=== PATIENT | male | born 1960 | race Caucasian/White ===

== ENCOUNTER 2021-08-24 15:10 | Outpatient (CLI) | payer BC, SELFPAY ==
--- NOTE | 2021-08-24 15:30 | ECG_ITS ---
Measurements Intervals [place] Rate: 52 P: 13 WI: 128 QRS: 16 QRSD: 118 T: 46 QT: 397 QTc: 372 Interpretive Statements SINUS BRADYCARDIA INCOMPLETE LEFT BUNDLE BRANCH BLOCK DELAYED PRECORDIAL R/S TRANSITION BASELINE ARTIFACT- I, II, III, AVR, AVL, AVF ABNORMAL ECG Electronically Signed On 08-24-2021 16:02:15 CDT by Jak Zelaya D.O.
== END 2021-08-24 15:11 | disposition home or self-care (01) ==
LOC: ANHSURGERY 15:12
PROVIDERS: PCP Family Medicine; Visit Provider Otolaryngology
DX: I10 Essential (primary) hypertension (principal); Z01.818 Encounter for other preprocedural examination; I44.7 Left bundle-branch block, unspecified
CPT/HCPCS: 93005

== ENCOUNTER 2021-08-26 00:26 | Day surgery (SDC) | payer BC, SELFPAY ==
[2021-08-19 14:55] VITALS: BMI 35.5
--- NOTE | 2021-08-24 18:52 | PM.IMHP ---
H&P: HPI History of Present Illness Date/Time: 08/24/21 18:52 Chief Complaint: neck mass, thyroglossal duct cyst Narrative: Patient presents for planned surgical procedures, no change in history, no change in symptoms. Review of Systems Constitutional: Constitutional: Denies fatigue, Denies fever(s) and Denies lethargy Eyes: Eyes: Denies blurry vision and Denies change in vision ENT: Reports as per HPI Cardiovascular: Cardiovascular: Denies chest pain Respiratory: Respiratory: Denies cough Endocrine: Endocrine: Denies fatigue Hematologic/Lymphatic: Hematologic/Lymphatic: Denies easy bleeding, Denies easy bruising and Denies lymphadenopathy Allergic/Immunologic: Allergic/Immunologic: Denies seasonal rhinorrhea [facility] Family History Family History Father Cancer Hypertension Heart disease Mother Diabetes mellitus Hypertension Heart disease Cerebrovascular accident Sibling Diabetes mellitus Grandparent Cancer Diabetes mellitus Heart disease Grandparent Cerebrovascular accident Social History Social History Smoking status: Never smoker Alcohol intake: never Substance use: never Substance use type: does not use Spiritual care concerns: No Meds Home Medications and Allergies Home Medications Medication Instructions Recorded Confirmed Type aspirin 81 mg tablet,delayed 81 mg PO HS 03/09/21 08/19/21 History release metoprolol succinate 25 mg 25 mg PO BID 03/09/21 08/19/21 History tablet,extended release 24 hr pravastatin 10 mg tablet 10 mg PO DAILY 03/09/21 08/19/21 History Allergies Allergy/AdvReac Type Severity Reaction Status Date / Time amoxicillin Allergy Severe Anaphylaxis Verified 08/19/21 14:51 clindamycin Allergy Severe Rash Verified 08/19/21 14:51 Exam Const: General: cooperative, healthy appearing, comfortable, well developed and alert HENMT: Head: normal to inspection, normocephalic and atraumatic Ears: hearing grossly normal bilaterally, external ears normal, TM's normal bilaterally and EAC's normal General nose exam: Normal external nose present and Normal nares present Face and sinus: normal facial exam Mouth: Yes Normal oral and palatal mucosa present, Yes lip normal, Yes tongue normal, Yes oropharynx normal and Yes moist mucous membranes Teeth and gingiva: dentition normal and gingiva normal Throat: posterior oropharynx normal, tonsils normal and uvula midline Eyes: General: appearance normal, both eyes and all related structures Periorbital: periorbital findings normal Eyelids: eyelids normal Conjunctivae: conjunctivae normal Sclera: sclerae normal Neck: Neck: not normal to visual inspection (mass off of midline to left of thyroid cartilage), full ROM and anterior neck swelling Thyroid: thyroid normal Lymphatic: no lymphadenopathy noted Resp: Effort & Inspection: normal respiratory effort and able to speak in complete sentences Cardio: Jugular venous distension: no JVD Neuro: Cranial nerves: Yes CN's II-XII intact bilaterally Assessment and Plan Assessment and plan (1) Thyroid cyst: Code(s): E04.1 - Nontoxic single thyroid nodule Status: Acute Assessment and Plan: Plan is for OR for excision of midline neck mass, set up like a thyroidectomy. No recurrent laryngeal nerve monitoring required. Less likely stephanie procedure. Risks were discussed including bleeding infection, , need for further procedures, post operative infection, damage to surrounding structures, need for post operative drain placement, less likely damage to parathyroid or airway or recurrent laryngeal nerve. Patient voiced understanding of these risks and agreed. Total operative time approximately 2 hours. (2) Neck mass: Code(s): R22.1 - Localized swelling, mass and lump, neck Status: Acute
--- NOTE | 2021-08-25 14:15 | P.PNAN_ITS ---
Anes - Initial Pre Proc Eval Procedure: Operation Date: 08/26/21 10:30 Proposed Procedures p Excision Midline Neck Mass - Natan Coats MD s Excision Thyroglossal Duct Cyst - Natan Coats MD Date/Time: 08/25/21 14:15 Surgeon: Natan Coats MD Pre Op Diagnosis: midline neck mass, thyroglossal duct cyst Patient Data Age: 61 Gender: M Height: 1.68 m Weight: 99.79 kg Allergies Allergy/AdvReac Type Severity Reaction Status Date / Time amoxicillin Allergy Severe Anaphylaxis Verified 08/19/21 14:51 clindamycin Allergy Severe Rash Verified 08/19/21 14:51 Home Medications Medication Instructions Recorded Confirmed Type aspirin 81 mg tablet,delayed 81 mg PO HS 03/09/21 08/19/21 History release metoprolol succinate 25 mg 25 mg PO BID 03/09/21 08/19/21 History tablet,extended release 24 hr pravastatin 10 mg tablet 10 mg PO DAILY 03/09/21 08/19/21 History Patient hx anesthesia problems: none Family hx anesthesia problems: none Results Review: All pre-operative results and documents have been reviewed as part of the pre-operative evaluation. [facility] Past Medical History Medical History (Updated 08/25/21 @ 14:16 by Kam Lance DO) Hyperlipidemia Hypertension DARWIN (obstructive sleep apnea) BiPap Family History Family History Father Cancer Hypertension Heart disease Mother Diabetes mellitus Hypertension Heart disease Cerebrovascular accident Sibling Diabetes mellitus Grandparent Cancer Diabetes mellitus Heart disease Grandparent Cerebrovascular accident Social History Social History Smoking status: Never smoker Alcohol intake: never Substance use: never Substance use type: does not use Living arrangements: with family Spiritual care concerns: No Anes - Eval Final PreProcedure Day of Procedure 08/25/21 14:15 Patient weight: obese Heart: regular rate and rhythm Lungs: clear to auscultation and normal air movement Airway: Mallampati scale class III Neurological: alert and oriented Last oral intake: >/= 8 hours ASA classification: III Emergent: no Anesthetic plan: proceed Anesthesia type and monitoring: general ETT and standard monitoring Results Review: All pre-operative results and documents have been reviewed as part of the pre-operative evaluation. Informed Consent: The patient's anesthetic plan and its attendant risks and benefits were discussed with the patient/family/POA. Questions were solicited and answers provided to the satisfaction of the patient/family/POA.
[2021-08-26] VITALS (10 sets, daily range): BP systolic 126–147; BP diastolic 73–95; PULSE 50–62; RESP 10–20; TEMP 36.5; O2SAT 92–100
--- NOTE | 2021-08-26 07:09 | WPDHPUPDATE1 ---
History and Physical Update Update Date/Time: 08/26/21 07:09 History and Physical has been reviewed, including an updated exam of the patient. There are NO changes in the patient's condition. Risks, benefits, and alternatives have been discussed and questions answered. Patient agrees to proceed with procedure.
[2021-08-26] MEDS: LACTATED RINGERS 1,000 ML 30 ML IV CONT ×2 (08:58→13:55)
[2021-08-26] MEDS: ceFAZolin 2 GM/D5W 50 ML 2 GM/50 ML BAG IVPB (10:32)
[2021-08-26] MEDS: LIDO 1%/EPINEPHRINE 1:100,000 50 ML VIAL INFILTRATE (10:45)
--- NOTE | 2021-08-26 14:23 | W.PM.PROC2 ---
Procedure Note - Detailed Date of Procedure 08/26/21 Pre-op Diagnosis midline neck mass, thyroglossal duct cyst Post-op Diagnosis same Procedure Performed Excision of thyroglossal duct cyst/Priyanka procedure Surgeon Natan Coats MD Anesthesia general Indications See above Findings Large cystic structure tracked superiorly to the hyoid bone anterior hyoid bone removed excuse me midline hyoid bone removed Description of Procedure The patient was correctly identified sent was verified in the preoperative holding area. The patient was then brought to the operating room and a time-out performed. General anesthesia was induced and endotracheal tube was secured the patient's airway. Shoulder roll placed patient prepped and draped for the aforementioned procedure time-out performed. Midline surgical incision drawn in relaxed skin tension line slightly above the modified Cobra type incision. Incision was approximately 5 cm horizontal in length. For cc 1% lidocaine with 1 100,000 parts epinephrine injected deep to it. 5 minutes were allowed to elapse. A 15 blade utilized to dissect down to the pulse is platysma. Bovie electrocautery as well as blunt dissection utilized to dissect through the strap musculature after raising superior and inferior based subplatysmal flaps. Dura hooks placed exposing the operative field better. Large cystic structure noted in the midline. This was dissected using a combination of Bovie electrocautery blunt dissection sharp dissection with scissors as well as peanuts. Cystic structure freed from all surrounding musculature tracked superiorly to the hyoid bone. The cyst was then drained to allow better visualization given the tunnel we were operating in. Hyoid bone exposed in the midline and cut using a combination of Kerrison and rongeur wears as well as bone cutting instruments. Any bleeding was controlled with intermittent application of bipolar electrocautery. The wound was then copiously irrigated and a suction drain placed after anesthesia performed a Valsalva insuring no brisk bleeding was noted. Drain sutured to the skin using 3-0 nylon suture. The strap muscles were closed superiorly using interrupted 3-0 Vicryl sutures. Platysma closed using 3-0 interrupted Vicryl sutures. Deep dermis closed using 3-0 interrupted Vicryl sutures. The skin was very well-approximated an glued closed. Compression dressing and drain sponge placed. This marked the end of the procedure. I performed all dictated portions. There were no immediate complications. Please add that the region with the cyst tract was also closed using a stitch which was a 3 0 interrupted Vicryl suture. Total blood loss approximately 15 cc. Estimated Blood Loss 15 Drains Yes Packing No Pathology yes Complications No immediate complications Condition stable Disposition PACU
[2021-08-26] MEDS: ONDANSETRON INJ 4 MG/2 ML VIAL IV PUSH (16:06)
[2021-08-26] MEDS: oxyCODONE HCL (*CRX) 5 MG TAB IR PO (16:07)
== END 2021-08-26 17:15 | disposition home or self-care (01) ==
PROVIDERS: PCP Family Medicine; Visit Provider Otolaryngology
PROC: (CPT 60280; principal; 2021-08-26 10:30)
PROC: (CPT 60280; 2021-08-26 10:30)
DX: Q89.2 Congenital malformations of other endocrine glands (principal); I10 Essential (primary) hypertension; E78.5 Hyperlipidemia, unspecified; G47.33 Obstructive sleep apnea (adult) (pediatric); E66.9 Obesity, unspecified; Z68.37 Body mass index [BMI] 37.0-37.9, adult
CPT/HCPCS: 60280; 88305; A9270; J0330; J0690; J1100; J2250; J2270; J2405; J2704; J7120

== ENCOUNTER 2022-04-21 12:30 | Outpatient (CLI) | payer BC, SELFPAY ==
--- NOTE | ~2022-04-21 | CT_ITS ---
EXAMINATION: CT soft tissue neck w con DATE: 04/21/2022 13:04 INDICATION: Left neck pain. TECHNIQUE: Computed tomography (CT) of the neck was performed with 75 mL Omnipaque 300 intravenous co ntrast. Automated exposure control and iterative reconstruction technique were employed. The dose-martina gth product was 628.49 mGy-cm. COMPARISON: None FINDINGS: The major salivary glands are normal. No sialolith. There are no pathologically enlarged ly mph nodes. There is mild mucosal thickening in left maxillary sinus. There are calcifications in the palatine tonsils. The thyroid is normal. There is 6 degrees levocurvature of cervicothoracic spine. Vertebral body heights are normal. There is severely decreased disc height from C5-C6 through C7-T1 w ith endplate remodeling. The following disc levels are specifically discussed: C2-C3: There is mild bilateral uncovertebral joint osteoarthritis. There is mild bilateral facet join t osteoarthritis. There is mild left neural foraminal stenosis. There is no central canal stenosis. C3-C4: There is mild bilateral uncovertebral joint osteoarthritis. There is mild right facet joint os teoarthritis. There is no neural foraminal stenosis. There is no central canal stenosis. C4-C5: There is moderate right and mild left uncovertebral joint osteoarthritis. There is no facet domenic int osteoarthritis. There is mild right neural foraminal stenosis. There is mild central canal stenos is. C5-C6: There is severe bilateral uncovertebral joint osteoarthritis. There is mild bilateral facet domenic int osteoarthritis. There is moderate right and mild left neural foraminal stenosis. There is moderat e central canal stenosis. C6-C7: There is severe bilateral uncovertebral joint osteoarthritis. There is mild bilateral facet domenic int osteoarthritis. There is mild bilateral neural foraminal stenosis. There is mild central canal st enosis. C7-T1: There is no uncovertebral joint osteoarthritis. There is severe right and moderate left facet joint osteoarthritis. There is mild right neural foraminal stenosis. There is no central canal stenos is. IMPRESSION: 1. No specific etiology for the patient's symptoms in the neck soft tissues. 2. Severe cervical spondylosis. Reviewed, dictated and finalized at location A.
[2022-04-21 12:55] LABS: Estimated Glomerular Filt Rate > 60
== END 2022-04-21 12:31 | disposition home or self-care (01) ==
PROVIDERS: PCP Family Medicine; Visit Provider Otolaryngology
DX: E04.1 Nontoxic single thyroid nodule (principal); R22.1 Localized swelling, mass and lump, neck; M47.892 Other spondylosis, cervical region
CPT/HCPCS: 70491; Q9967

== ENCOUNTER 2024-05-16 00:44 | Day surgery (SDC) | payer BC, SELFPAY ==
[2024-04-30 15:57] VITALS: BMI 35.6
--- NOTE | 2024-05-16 06:48 | P.PNAN_ITS ---
Anes - Initial Pre Proc Eval Procedure: Operation Date: 05/16/24 08:00 Proposed Procedures p Screening Colonoscopy - Orlando Guerra MD Date/Time: 05/16/24 06:48 Surgeon: Orlando Guerra MD Pre Op Diagnosis: neoplasm screening Patient Data Age: 64 Gender: M Height: 1.68 m Weight: 100 kg Allergies Allergy/AdvReac Type Severity Reaction Status Date / Time amoxicillin Allergy Severe Anaphylaxis Verified 05/16/24 06:52 clindamycin Allergy Severe Rash Verified 05/16/24 06:52 Home Medications Medication Instructions Recorded Confirmed Type aspirin 81 mg tablet,delayed 81 mg PO HS 03/09/21 05/16/24 History release (Adult Aspirin Regimen) metoprolol succinate 25 mg 25 mg PO BID 03/09/21 05/16/24 History tablet,extended release 24 hr pravastatin 10 mg tablet 10 mg PO DAILY 03/09/21 05/16/24 History Patient hx anesthesia problems: none Family hx anesthesia problems: none Results Review: All pre-operative results and documents have been reviewed as part of the pre- operative evaluation. [facility] Past Medical History Medical History Hyperlipidemia Hypertension DARWIN (obstructive sleep apnea) BiPap Family History Family History Father Cancer Hypertension Heart disease Mother Diabetes mellitus Hypertension Heart disease Cerebrovascular accident Sibling Diabetes mellitus Grandparent Cancer Diabetes mellitus Heart disease Grandparent Cerebrovascular accident Social History Social History Smoking status: Never smoker Alcohol intake: never Substance use: never Substance use type: does not use Living arrangements: with family Spiritual care concerns: No Anes - Eval Final PreProcedure Day of Procedure 05/16/24 06:48 Patient weight: obese Heart: regular rate and rhythm Lungs: clear to auscultation Airway: Mallampati scale class II Neurological: alert and oriented Last oral intake: >/= 8 hours ASA classification: III Emergent: no Anesthetic plan: proceed Anesthesia type and monitoring: general GIVS and standard monitoring Results Review: All pre-operative results and documents have been reviewed as part of the pre- operative evaluation. HTN, hyperlipidemia, DARWIN on bipap. Informed Consent: The patient's anesthetic plan and its attendant risks and benefits were discussed with the patient/family/POA. Questions were solicited and answers provided to the satisfaction of the patient/family/POA.
[2024-05-16 06:53] VITALS: BP 118/69; PULSE 100; RESP 20; TEMP 36.2; O2SAT 100; BMI 37.0
[2024-05-16] MEDS: LACTATED RINGERS 1,000 ML 150 ML IV CONT (07:04)
--- NOTE | 2024-05-16 07:13 | PM.HPGS ---
History of Present Illness History of Present Illness Consent: Risks, benefits, and alternatives have been discussed and questions answered. Patient agrees to proceed with procedure. Chief complaint: neoplasm screening Narrative: Kam Hall is a 64 year old male here for screening colonoscopy, last one 10 years ago Review of Systems Review of Systems: All systems reviewed & are unremarkable except as noted in HPI and below PMFSH Past Medical History Medical History (Updated 05/16/24 @ 07:13 by Orlando Guerra MD) Colon cancer screening Hyperlipidemia Hypertension DARWIN (obstructive sleep apnea) BiPap Family History Family History Father Cancer Hypertension Heart disease Mother Diabetes mellitus Hypertension Heart disease Cerebrovascular accident Sibling Diabetes mellitus Grandparent Cancer Diabetes mellitus Heart disease Grandparent Cerebrovascular accident Social History Social History Smoking status: Never smoker Alcohol intake: never Substance use: never Substance use type: does not use Living arrangements: with family Spiritual care concerns: No Meds Home Medications and Allergies Home Medications Medication Instructions Recorded Confirmed Type aspirin 81 mg tablet,delayed 81 mg PO HS 03/09/21 05/16/24 History release (Adult Aspirin Regimen) metoprolol succinate 25 mg 25 mg PO BID 03/09/21 05/16/24 History tablet,extended release 24 hr pravastatin 10 mg tablet 10 mg PO DAILY 03/09/21 05/16/24 History Allergies Allergy/AdvReac Type Severity Reaction Status Date / Time amoxicillin Allergy Severe Anaphylaxis Verified 05/16/24 06:52 clindamycin Allergy Severe Rash Verified 05/16/24 06:52 Vital Signs Vital Signs - 24 hr 05/16/24 06:53 Temperature 97.1 F L Pulse Rate 100 Respiratory Rate 20 Blood Pressure 118/69 Pulse Oximetry 100 Oxygen Delivery Room Air Exam Const: General: comfortable and no acute distress HENMT: Face/Nose/Sinus: Normal nares present Eyes: General: appearance normal, both eyes and all related structures Neck: Neck: no JVD Resp: Auscultation: clear to auscultation bilaterally Cardio: Rate: regular rate Rhythm: regular rhythm GI: Inspection: non-distended GI Palp: Yes Soft to palpation Skin: General skin exam: normal color Neuro: General: gait normal Speech: normal speech Extrem: General: normal to inspection Psych: Mental Status: mental status grossly normal Assessment and Plan Assessment and plan (1) Colon cancer screening: Code(s): Z12.11 - Encounter for screening for malignant neoplasm of colon Status: Acute Assessment and Plan: colonoscopy
[2024-05-16 08:00] VITALS: BP 104/67; PULSE 62; RESP 25; O2SAT 98
[2024-05-16 08:10] VITALS: BP 112/70; PULSE 60; RESP 20; O2SAT 97
[2024-05-16 08:20] VITALS: BP 138/89; PULSE 56; RESP 20; O2SAT 99
== END 2024-05-16 08:31 | disposition home or self-care (01) ==
PROVIDERS: PCP Family Medicine; Visit Provider Internal Medicine Gastroenterology
PROC: 0DJD8ZZ Inspection of Lower Intestinal Tract, Via Natural or Artificial Opening Endoscopic (ICD-10-PCS; CPT 45378; principal; 2024-05-16 08:00)
DX: Z12.11 Encounter for screening for malignant neoplasm of colon (principal); E78.5 Hyperlipidemia, unspecified; I10 Essential (primary) hypertension; G47.33 Obstructive sleep apnea (adult) (pediatric)
CPT/HCPCS: 45378; J7120